=== PATIENT | female | born 1990 | race Caucasian/White ===

== ENCOUNTER 2021-07-28 15:57 | Emergency (ER) | payer SELFPAY ==
[~2021-07-28] VITALS: Ht 170.2 cm; Wt 72.7 kg
[2021-07-28 16:22] VITALS: BP 123/84; TEMP 98.2
[2021-07-28] MEDS ORDERED: NORCO 325 MG-51 TAB PO (16:51)
[2021-07-28] MEDS ORDERED: AMOXICILLIN 50500 MG PO (16:51)
[2021-07-28 17:17] VITALS: PULSE 70
== END 2021-07-28 17:18 | disposition home or self-care (01) ==
LOC: COL.ER 15:57
DX: K02.9 Dental caries, unspecified (principal)

== ENCOUNTER → 2021-09-04 | Outpatient (CLI) | payer SELFPAY ==
[~2021-09-04] MED LIST: AMOXICILLIN 50500 MG PO; NORCO 325 MG-51 TAB PO
[2021-09-04 17:47] LABS: HIV 1/2 Antibodies Non-Reactive; HIV-1p24 Antigen Non-Reactive
[2021-09-05 05:52] LABS: HEPATITIS C VIRUS ANTIBODY Reactive (Negative)
[2021-09-06 12:17] LABS: HEPATITIS AB (HAV) IGG INDEX 0.32 Index (<=1.00)
== END ==
LOC: COL.LAB 16:14
PROVIDERS: Family Medicine
DX: Z72.51 High risk heterosexual behavior (principal)

== ENCOUNTER → 2021-10-11 | Outpatient (CLI) | payer SELFPAY ==
[2021-10-11 15:17] LABS: HIV 1/2 Antibodies Non-Reactive; HIV-1p24 Antigen Non-Reactive
[2021-10-11 23:05] LABS: HEPATITIS A ANTIBODY-IGM Negative (Negative)
[2021-10-12 04:14] LABS: HEPATITIS C VIRUS ANTIBODY Reactive (Negative)
[2021-10-12 04:35] LABS: HEPATITIS AB (HAV) IGG INDEX 0.22 Index (<=1.00)
== END ==
LOC: COL.LAB 13:53
PROVIDERS: Family Medicine
DX: Z01.89 Encounter for other specified special examinations (principal)

== ENCOUNTER 2022-04-11 08:23 | Emergency (ER) | payer OTHER, BC ==
[~2022-04-11] VITALS: Ht 170.2 cm; Wt 61.4 kg
[2022-04-11 08:46] VITALS: BP 104/67
[2022-04-11] MEDS ORDERED: CEPHALEXIN500 M1 PO (09:31)
[2022-04-11 09:47] VITALS: PULSE 57
== END 2022-04-11 09:47 | disposition home or self-care (01) ==
LOC: COL.ER 08:23
DX: S61.212A Laceration without foreign body of right middle finger without damage to nail, initial encounter (principal); W26.8XXA Contact with other sharp object(s), not elsewhere classified, initial encounter; Y92.59 Other trade areas as the place of occurrence of the external cause; Y99.0 Civilian activity done for income or pay